=== PATIENT | male | born 1950 | race Caucasian/White ===

== ENCOUNTER → 2018-03-12 | Outpatient (CLI) | payer MEDICARE ==
[~2018-03-12] MED LIST: AMLO10TA6 PO; ASPI81TA50 PO; ATOR40TA59 PO; FAMO-63 PO; HYDR-2766 PO; ISOS30TA19 PO; LEVO137T3 PO; LISI40TA PO; METO-247 PO; MULT1TAB52 PO
== END | disposition home or self-care (01) ==
LOC: SURG 12:27
PROVIDERS: ATTEND Anesthesiology Pain Medicine
DX: M47.816 Spondylosis without myelopathy or radiculopathy, lumbar region (principal); G89.4 Chronic pain syndrome
CPT/HCPCS: 99212

== ENCOUNTER → 2018-04-07 | Day surgery (SDC) | payer MEDICARE ==
[~2018-04-07] MED LIST changes: +BUPIVACAINE MPF 0.25% 10 ML VIAL. ONE; +DEXAMETHASONE SOD PHOS 4 MG/ML VIAL ONE; +LIDOCAINE 2% PF Vial for OR 5 ML VIAL. ONE; +MIDAZOLAM HCL PF 2 MG/2 ML VIAL. ONE
[2018-04-07 09:53] VITALS: BP 143/87
== END | disposition home or self-care (01) ==
LOC: SURG 07:29
PROVIDERS: ATTEND Anesthesiology Pain Medicine
DX: M47.816 Spondylosis without myelopathy or radiculopathy, lumbar region (principal); K21.9 Gastro-esophageal reflux disease without esophagitis; Z98.890 Other specified postprocedural states; Z79.82 Long term (current) use of aspirin; Z79.899 Other long term (current) drug therapy; Z88.5 Allergy status to narcotic agent; M19.90 Unspecified osteoarthritis, unspecified site; Z88.8 Allergy status to other drugs, medicaments and biological substances; I11.0 Hypertensive heart disease with heart failure; I50.9 Heart failure, unspecified; Z72.89 Other problems related to lifestyle; Z95.5 Presence of coronary angioplasty implant and graft; Z98.41 Cataract extraction status, right eye; Z96.1 Presence of intraocular lens
CPT/HCPCS: 64635; 99152; J1100; J2250; J3490; 64636; J3010; J2001

== ENCOUNTER → 2018-05-06 | Outpatient (CLI) | payer MEDICARE ==
[2018-04-07 09:53] VITALS: BP 143/87
[~2018-05-06] MED LIST changes: -BUPIVACAINE MPF 0.25% 10 ML VIAL. ONE; +BUPIVACAINE MPF 0.5% 30 ML VIAL. ONE; -DEXAMETHASONE SOD PHOS 4 MG/ML VIAL ONE; -LIDOCAINE 2% PF Vial for OR 5 ML VIAL. ONE; -MIDAZOLAM HCL PF 2 MG/2 ML VIAL. ONE; +methylPREDNISolone ACETATE 40 MG/ML VIAL. ONE
== END | disposition home or self-care (01) ==
LOC: SURG 11:45
PROVIDERS: ATTEND Anesthesiology Pain Medicine
DX: M46.1 Sacroiliitis, not elsewhere classified (principal); M47.816 Spondylosis without myelopathy or radiculopathy, lumbar region; I11.0 Hypertensive heart disease with heart failure; I50.9 Heart failure, unspecified; E11.9 Type 2 diabetes mellitus without complications; M19.90 Unspecified osteoarthritis, unspecified site; G47.30 Sleep apnea, unspecified; G89.4 Chronic pain syndrome; Z79.82 Long term (current) use of aspirin; Z98.890 Other specified postprocedural states; Z79.899 Other long term (current) drug therapy; K21.9 Gastro-esophageal reflux disease without esophagitis; Z88.6 Allergy status to analgesic agent; Z88.8 Allergy status to other drugs, medicaments and biological substances; Z72.89 Other problems related to lifestyle; Z95.5 Presence of coronary angioplasty implant and graft; Z79.84 Long term (current) use of oral hypoglycemic drugs
CPT/HCPCS: G0260; J1030; J3490; 27096

== ENCOUNTER → 2018-09-09 | Outpatient (CLI) | payer MEDICARE ==
[2018-04-07 09:53] VITALS: BP 143/87
[~2018-09-09] MED LIST changes: -AMLO10TA6 PO; +AMLO10TA8 PO; +BUPIVACAINE MPF 0.25% 10 ML VIAL. ONE; -BUPIVACAINE MPF 0.5% 30 ML VIAL. ONE; -HYDR-2766 PO; +HYDR-2769 PO; +LIDOCAINE 1% PF 30 ML VIAL. ONE; -methylPREDNISolone ACETATE 40 MG/ML VIAL. ONE
== END | disposition home or self-care (01) ==
LOC: SURG 13:49
PROVIDERS: ATTEND Anesthesiology Pain Medicine
DX: M79.18 Myalgia, other site (principal); Z88.6 Allergy status to analgesic agent; Z88.8 Allergy status to other drugs, medicaments and biological substances; Z72.89 Other problems related to lifestyle; I10 Essential (primary) hypertension; I25.2 Old myocardial infarction; Z95.5 Presence of coronary angioplasty implant and graft; M19.90 Unspecified osteoarthritis, unspecified site; K21.9 Gastro-esophageal reflux disease without esophagitis; E16.2 Hypoglycemia, unspecified; Z98.41 Cataract extraction status, right eye; Z96.1 Presence of intraocular lens; Z98.890 Other specified postprocedural states; Z79.899 Other long term (current) drug therapy; Z79.82 Long term (current) use of aspirin
CPT/HCPCS: 20553; J2001; J3490; 20551; 20552

== ENCOUNTER → 2020-10-19 | Outpatient (CLI) | payer MEDICARE ==
[2018-04-07 09:53] VITALS: BP 143/87
[~2020-10-19] MED LIST changes: +AMLO-187 PO; -AMLO10TA8 PO; -BUPIVACAINE MPF 0.25% 10 ML VIAL. ONE; +IOHEXOL 300 MG/ML 75 ML VIAL. IV ONE; -LIDOCAINE 1% PF 30 ML VIAL. ONE; -LISI40TA PO; +LISI40TA6 PO; +MULT-445 PO; -MULT1TAB52 PO
--- NOTE | 2020-10-19 15:14 | RAD ---
CT abdomen and pelvis with contrast: Reason for examination: Abdominal wall mass at right flank. Helical images were obtained through the abdomen and pelvis with intravenous administration of 60 cc Omnipaque 300. Reconstruction was performed in sagittal and coronal planes. Exposure: One or more of the following individualized dose reduction techniques were utilized for thi s examination: 1. Automated exposure control 2. Adjustment of the mA and/or kV according to patient size 3. Use of iterative reconstruction technique. The lung bases are clear. The heart size appears be normal with no pericardial effusion. The liver shows several small hypodense lesions probably representing cysts which measure up to 11 mm in size. The gallbladder shows no definite abnormality. No abnormality seen at the spleen, adrenal g lands or pancreas. The abdominal aorta and inferior vena cava show no acute abnormalities. No abnorma lity seen at the appendix. There is some diverticulosis in the sigmoid colon but no evidence of diver ticulitis. The small intestinal tract shows no abnormal dilatation, wall thickening or obstruction. T here are postop changes in the stomach. No abnormality seen at the duodenum. The kidneys show a 5.3 x 4.7 x 4.8 cm cystic lesion at the lower pole of the right kidney laterally. No renal calculi, hydron ephrosis or obstructive uropathy is evident. No abnormality seen at the bladder, prostate gland or seminal vesicles. No free fluid or free air is seen in the abdomen or pelvis. There are no acute bony abnormalities seen. There is however a thoraco lumbar scoliosis with degenerative changes especially at the L3-4 and L5-S1 disc levels. In the soft tissues of the right flank however there is a bilobed fluid collection with air-fluid level measuring 11 x 6 x 5 cm in greatest craniocaudal, AP and transverse dimensions. Appearance is consistent with an abscess and there is surrounding edema in the adjacent fat. No other abnormal fluid collections ar e seen in the soft tissues. IMPRESSION: Diverticulosis in the sigmoid colon but no evidence of diverticulitis. 5.3 cm cyst in the lower pole the right kidney laterally Bilobed fluid collection measuring 11 x 6 x 5 cm in greatest dimension with air-fluid level consisten t with an abscess in the right flank with adjacent edema in the fatty tissues. Thoracolumbar scoliosis with severe degenerative disc disease at the L3-4 and L5-S1 disc levels. Electronically signed by: Yesika Hou MD (10/19/2020 3:11 PM) [facility]
== END ==
LOC: CT 13:54
PROVIDERS: ATTEND Internal Medicine
DX: K57.30 Diverticulosis of large intestine without perforation or abscess without bleeding (principal); N28.1 Cyst of kidney, acquired; R19.00 Intra-abdominal and pelvic swelling, mass and lump, unspecified site; M51.37 Other intervertebral disc degeneration, lumbosacral region; M41.85 Other forms of scoliosis, thoracolumbar region
CPT/HCPCS: 74177; Q9967

== ENCOUNTER 2021-11-19 17:50 | Emergency (ER) | payer MEDICARE ==
[2018-04-07 09:53] VITALS: BP 143/87
[~2021-11-19 17:50] MED LIST changes: -IOHEXOL 300 MG/ML 75 ML VIAL. IV ONE
--- NOTE | 2021-11-19 19:58 | PHYS DOC ---
General Adult EDM: Chief Complaint: PSYCH EVALUATION HPI: HPI: Patient is a 71-year-old male presents with EMS. Patient states that PD has been called to his house multiple times today for verbal altercation with and daughter. PD told patient that he could go to [facility] or go to the hospital. Patient decided to come to the hospital. Patient's denying SI or HI. Patient denies all complaints. Patient's not requesting services for substance abuse. "I have no idea why I am here I only came because PD told me I was going to gel if not". Denies chest pain, shortness of breath. Patient has history of alcoholism, opiate abuse. (BREA SIDDIQUI APRN) Review of Systems: Review of Systems: Constitutional: Denies fever or chills Eyes: Denies change in visual acuity HENT: Denies nasal congestion or sore throat Respiratory: Denies cough or shortness of breath Cardiovascular: Denies chest pain or edema GI: Denies abdominal pain, nausea, vomiting, bloody stools or diarrhea : Denies dysuria Musculoskeletal: Denies back pain or joint pain Integument: Denies rash Neurologic: Denies headache, focal weakness or sensory changes Endocrine: Denies polyuria or polydipsia Lymphatic: Denies swollen glands Psychiatric: Denies depression or anxiety (BREA SIDDIQUI APRN) Allergies: Allergies: Allergies Coded Allergies Type Severity Reaction Last Updated Verified NSAIDS (Non-Steroidal Anti-Inflamma Allergy Unknown 04/07/18 Yes clopidogrel Allergy Unknown 04/07/18 Yes fentanyl Allergy Unknown 04/07/18 Yes hydrocodone Allergy Unknown 04/07/18 Yes tramadol Allergy Unknown 04/07/18 Yes (BREA SIDDIQUI DOCTORATE OF CHIROPRACTIC) Physical Exam: PE: Constitutional: Well developed, well nourished, no acute distress, non-toxic appearance. [] HENT: Normocephalic, atraumatic, bilateral external ears normal, oropharynx moist, no oral exudates, nose normal. [] Eyes: PERRLA, EOMI, conjunctiva normal, no discharge. [] Neck: Normal range of motion, no tenderness, supple, no stridor. [] Cardiovascular:Heart rate regular rhythm, no murmur [] Lungs & Thorax: Bilateral breath sounds clear to auscultation [] Abdomen: Bowel sounds normal, soft, no tenderness, no masses, no pulsatile masses. [] Skin: Warm, dry, no erythema, no rash. [] Back: No tenderness, no CVA tenderness. [] Extremities: No tenderness, no cyanosis, no clubbing, ROM intact, no edema. [] Neurologic: Alert and oriented X 3, normal motor function, normal sensory function, no focal deficits noted. [] Psychologic: Affect normal, abnormal judgment, calm mood (BREA SIDDIQUI APRN) EKG: EKG: [] (BREA SIDDIQUI APRN) Radiology/Procedures: Radiology/Procedures: [] (BREA SIDDIQUI APRN) Heart Score: C/O Chest Pain: No Risk Factors: Risk Factors: DM, Current or recent (<one month) smoker, HTN, HLP, family history of CAD, obesity. Risk Scores: Score 0 - 3: 2.5% MACE over next 6 weeks - Discharge Home Score 4 - 6: 20.3% MACE over next 6 weeks - Admit for Clinical Observation Score 7 - 10: 72.7% MACE over next 6 weeks - Early Invasive Strategies (BREA SIDDIQUI APRN) Course & Med Decision Making: Course & Med Decision Making Pertinent Labs and Imaging studies reviewed. (See chart for details) [] 71-year male presents with EMS after PD being called to his home multiple times today for altercations. Patient states he was told he had no choice to come to the hospital where he was going to go to [facility]. Patient denies pain, denies any complaints. Denies wanting resources for alcoholism or opiate abuse. Patient is requesting to be discharged home. Hemodynamically stable. Able to ambulate on his own out of the ER. Patient is alert and oriented. (BREA SIDDIQUI APRN) Course & Med Decision Making Did not see or evaluate patient. Did not discuss patient with CREDIT RISK SPECIALIST. Generally agree with CREDIT RISK SPECIALIST's work-up and disposition per note (LINDA GRIMES MD) Dragon Disclaimer: Dragon Disclaimer: This electronic medical record was generated, in whole or in part, using a voice recognition dictation system. (BREA SIDDIQUI APRN) Departure Departure: Impression: Primary Impression: Encounter for medical clearance for patient hold Disposition: HOME / SELF CARE / HOMELESS Condition: STABLE Referrals: MARIBELL DOLL MD (PCP) Additional Instructions: EMERGENCY DEPARTMENT GENERAL DISCHARGE INSTRUCTIONS Thank you for coming to [facility] (ED) today and trusting us with you care. We trust that you had a positivie experience in our Emergency Department. If you wish to speak to the department management, you may call the director at [phone]. YOUR FOLLOW UP INSTRUCTIONS ARE FOLLOWS: 1. Do you have a private Doctor? If you do not have a private doctor, please ask for a resource list of physicians or clinics that may be able to assist you with follow up care. 2. The Emergency Physician has interpreted your x-rays. The X-Ray specialist will also review them. If there is a change in the findings, you will be notified in 48 hours when at all possible. 3. A lab test or culture has been done, your results will be reviewed and you will be notified if you need a change in treatment. ADDITIONAL INSTRUCTIONS AND INFORMATION: 1. Your care today has been supervised by a physician who is specially trained in emergency care. Many problems require more than one evaluation for a complete diagnosis and treatment. We recommend that you schedule your follow up appointment as recommended to ensure complete treatment of you illness or injury. If you are unable to obtain follow up care and continue to have a problem, or if your condition worsens, we recommend that you return to the ED. 2. We are not able to safely determine your condition over the phone nor are we able to give sound medical advice over the phone. For these safety reasons, if you call for medical advice we will ask you to come to the ED for further evaluation. 3. If you have any questions regarding these discharge instructions please call the ED at [phone]. SAFETY INFORMATION: In the interest of safety, wellness, and injury prevention; we encourage you to wear your sealbelt, if you smoke; quite smoking, and we encourage family to use a protective helmet for bicycling and other sporting events that present an increased risk for head injury. IF YOUR SYMPTOMS WORSEN OR NEW SYMPTOMS DEVELOP, OR YOU HAVE CONCERNS ABOUT YOUR CONDITION; OR IF YOUR CONDITION WORSENS WHILE YOU ARE WAITING FOR YOUR FOLLOW UP APPOINTMENT; EITHER CONTACT YOUR PRIMARY CARE DOCTOR, THE PHYSICIAN WHOSE NAME AND NUMBER YOU WERE GIVEN, OR RETURN TO THE ED IMMEDIATELY. BREA SIDDIQUI APRN November 19, 2021 19:58 LINDA GRIMES MD November 19, 2021 22:08
== END 2021-11-19 19:49 | disposition home or self-care (01) ==
LOC: ER 17:50
DX: Z00.8 Encounter for other general examination (principal); Z88.6 Allergy status to analgesic agent; Z88.5 Allergy status to narcotic agent; Z88.8 Allergy status to other drugs, medicaments and biological substances
CPT/HCPCS: 99283